=== PATIENT | male | born 1970 | race Caucasian/White ===

== ENCOUNTER 2018-03-26 07:36 | Emergency (ER) | payer MEDICAID, SELFPAY ==
[2018-03-26 07:50] VITALS: PULSE 70; RESP 18; TEMP 36.9; O2SAT 96
--- NOTE | 2018-03-26 08:05 | ED.GENADUL ---
Disposition Clinical Impression: Cellulitis of fourth toe, right Disposition: HOME Condition: Stable Instructions: Cellulitis (ED) Additional Instructions: continue cephalexin and start taking bactrim if you have redness spreading up the leg or fevers return to the emergency department you have a follow up appointment at your primary care office you can take 1000mg tylenol and 600mg ibuprofen every 6 hours for pain as needed Prescriptions: Clindamycin [Cleocin] 450 mg PO TID 7 Days cap Medical Decision Making - Medical Decision Making pt here with what appears to be cellulitis, Unclear if he has actually failed abx given only one day of cephalexin, but will add for mrsa coverage with bactrim. Has no fevers or severe pain or crepitus and has full rom of the toe so doubt osteo or nec fasc. Could be gout but has never had this before. No significant swelling of the joints and has full rom of the joint so doubt septic joint. Has intact vascular exam and sensation so doubt arterial occlusion. will have him f/u with pcp and return precautions given - Differential Diagnosis cellulitis, osteo, dvt, arterial occlusion History of Present Illness - General Chief complaint: Cellulitis Stated complaint: RIGHT FOOT TOE SWOLLEN Time Seen by Provider: 03/26/18 07:54 Source: patient Mode of arrival: ambulatory Limitations: no limitations - History of Present Illness Initial comments: 47 yo male comes in with one week of worsening right IV toe redness and swelling. He denies fevers or known trauma and no known hx of gout. He saw his pcp's office yesterday and was started on cehpalexin but felt his foot was more swollen so came here. He has red and purple coloring of the right IV toe. Sensation is intact. Has full rom and cap refill less than 2 seconds, toe does have mild warmth to touch, no severe pain. He has had pain with walking so has been limping and no feels there is some discomfort tin the right hip, has full rom of the hip without swelling warmth or redness. Has mild swelling of distal right foot, 2+ dp/pt pulses Complaint: right IV toe swelling Onset/Timin -: week(s) Location: lower extremity Quality: aching Consistency: constant Improves with: none Worsens with: none Associated Symptoms: denies other symptoms - Related Data Albuterol Sulfate [Proair Hfa] 8.5 gm IH Q6H PRN #2 puff 10/09/15 Cbd Oil Cap 15 mg BID 10/22/17 Echinacea 500 mg PO DAILY 10/29/17 Levothyroxine Sodium 50 mcg PO DAILY 10/29/17 Ibuprofen 800 mg PO TID #30 tablet 10/30/17 Cephalexin [Keflex] 250 mg PO QID 03/26/18 Clindamycin [Cleocin] 450 mg PO TID 7 Days cap 03/26/18 Allergies Allergy/AdvReac Type Severity Reaction Status Date / Time omeprazole Allergy Intermediate chest Unverified 03/26/18 07:53 pain, increased HR oxycodone AdvReac Intermediate Skin Rash Unverified 03/26/18 07:53 Sulfa (Sulfonamide AdvReac Intermediate vomiting Unverified 03/26/18 07:53 Antibiotics) Review of Systems Constitutional: denies: chills, fever Respiratory: denies: shortness of breath Cardiovascular: denies: chest pain Gastrointestinal: denies: abdominal pain, vomiting Musculoskeletal: denies: back pain Skin: rash Comment: All other systems reviewed and negative Past Medical History - Past Medical History back pain - Social History Alcohol use: none Drug use: none General Exam - General Limitations: no limitations General appearance: alert, in no apparent distress - Head Head exam: Present: atraumatic - Eye Eye exam: Present: normal apperance - ENT ENT exam: Present: mucous membranes moist - Neck Neck exam: Present: normal inspection - Respiratory Respiratory exam: Absent: respiratory distress - Cardiovascular Cardiovascular Exam: Present: regular rate - Extremities Exam Extremities exam: Present: full ROM, normal capillary refill, other (see hpi). Absent: calf tenderness - Neurological Exam Neurological exam: Present: alert, oriented X3 - Psychiatric Psychiatric exam: Present: normal affect - Skin Skin exam: Present: warm Course Vital Signs - 24 hr 03/26/18 07:50 Temperature 98.4 F Pulse 70 Respiratory 18 Rate Pulse Oximetry 96
--- NOTE | 2018-03-26 08:15 | NUR.NOTE ---
Nursing Note: Appt. made for patient at [facility] for @ 2:45pm with Dr. Stockton. Reyna Castro
[2018-03-26 08:20] VITALS: PULSE 70; RESP 18; TEMP 36.9; O2SAT 96
== END 2018-03-26 08:15 | disposition home or self-care (01) ==
PROVIDERS: Emergency Provider Emergency Medicine; PCP Nurse Practitioner Family
DX: L03.031 Cellulitis of right toe (principal)
CPT/HCPCS: 99283

== ENCOUNTER → 2018-04-10 07:03 | Outpatient (CLI) | payer MEDICAID, SELFPAY ==
[2018-04-10 07:42] LABS: Abs Immature Grans 0.01 k/cumm (0.0-0.09); Absolute Basophil Count 0.03 k/cumm (0.0-0.2); Absolute Eosinophil Count 0.15 k/cumm (0.0-0.7); Absolute Lymphocyte Count 2.01 k/cumm (1.2-3.4); Absolute Neutrophil Count 3.52 k/cumm (1.2-6.7); Basophils % 0.5; Eosinophils % 2.4; HCT 41.3 % (40.0-50.0); HGB 13.4 g/dL (13.5-17.5); Immature Grans % 0.2; Lymphocytes % 32.3; Mean Corp. HGB Concentration 32.4 g/dL (32.0-36.0); Mean Corpuscular Hemoglobin 28.9 pg (27.0-33.0); Mean Platelet Volume 9.6 fL (8.0-11.0); Neutrophils % 56.6; Platelet Count 239 x1000/uL (130-400); RBC 4.64 m/cumm (4.50-6.00); RBC Distribution Width 13.1 % (11.8-14.1); White Blood Cell Count 6.22 k/cumm (4.4-10.8)
[2018-04-10 08:15] LABS: C-Reactive Protein 0.34 mg/dL (0.0-0.3)
[2018-04-10 09:08] LABS: ESR 31 MM/HR (0-15)
== END ==
PROVIDERS: PCP Nurse Practitioner Family; Visit Provider Nurse Practitioner
DX: E03.9 Hypothyroidism, unspecified (principal); L03.115 Cellulitis of right lower limb; M79.89 Other specified soft tissue disorders
CPT/HCPCS: 36415; 85652; 85025; 86140

== ENCOUNTER 2018-05-30 14:38 | Outpatient (REF) | payer MEDICAID, SELFPAY ==
[2018-06-02 09:33] LABS: Hepatitis C Ab w Rflx HCV PCR Negative (NEGAT)
[2018-06-02 11:22] LABS: Hepatitis B Surface Ag Negative (NEGAT)
[2018-06-02 11:27] LABS: HIV-1/2 Ag & Ab Screen Negative (NEGAT)
== END 2018-05-30 14:58 ==
LOC: NCHCN 14:38
PROVIDERS: PCP Nurse Practitioner Family; Visit Provider Nurse Practitioner Family
DX: L08.89 Other specified local infections of the skin and subcutaneous tissue (principal); Z11.4 Encounter for screening for human immunodeficiency virus [HIV]; Z11.59 Encounter for screening for other viral diseases
CPT/HCPCS: 86803; 87340; 87389

== ENCOUNTER 2018-09-04 00:24 | Outpatient (CLI) | payer MEDICAID, SELFPAY ==
--- NOTE | 2018-09-04 15:23 | DI.MRI_ITS ---
SYMPTOM/DIAGNOSIS: CHRONIC LOW BACK PAIN, M54.5, MILD SPONDYLOSIS LUMBAR SPINE MRI: Routine noncontrast examination was performed. Comparison is made with 05/24/14. The conus medullaris has a normal appearance and location. There is a transitional vertebra at L 5 with partial sacralization noted. There is again seen a hemangioma in the S 1 vertebral body. At L 5-S 1, there is no focal disc herniation, central spinal canal or neural foraminal stenosis. Mild degenerative changes of the facets are seen. At L 4-5, there is disc desiccation. Mild degenerative signal changes are present. No significant neural foraminal stenosis is seen. No nerve root compression is present. At L 3-4, there is disc desiccation. Endplate degenerative signal changes are present. There is a mild diffuse disc bulge. No focal disc herniation or central spinal canal stenosis is seen. There are degenerative changes of the facets. Minimal narrowing of the neural foramen is seen bilaterally but no compression of the exiting nerve roots is seen. At L 2-3, there is disc desiccation. There is a mild diffuse disc bulge but no focal disc herniation or central spinal canal stenosis is seen. Mild narrowing of the left neural foramen is seen but no compression of the exiting nerve root is seen. At L 1-2, there is no focal disc herniation, central spinal canal or neural foraminal stenosis. IMPRESSION: Multi level degenerative changes in the lumbar spine. No central spinal canal stenosis or nerve root compression is seen.
--- NOTE | 2018-09-04 16:12 | DI.VRAD_ITS ---
EXAM: MR Lumbar Spine Without and With Contrast. EXAM DATE/TIME: 09/04/2018 3:20 PM CLINICAL HISTORY: 47 years old, male; Pain; Low back pain TECHNIQUE: Multiplanar magnetic resonance images of the lumbar spine without and with intravenous contrast. COMPARISON: MRI - LUMBAR SPINE WO CONTRAST 05/24/2014 3:27 PM FINDINGS: Note: No images were provided. Vertebrae: The lumbar lordosis is preserved. Transitional lumbosacral junction with partial sacralization of L5. There is mild levoscoliosis centered at the L2 level. Vertebral alignment is normal. There is disc space narrowing at T11-T12, T12-L1, and L4-L5 with desiccation of the discs. No acute fracture. Hemangioma measuring 1.6 cm in the S1 vertebra. Marrow otherwise unremarkable. Vertebral body heights maintained. Spinal cord: The distal spinal cord and conus medullaris are normal in configuration and signal intensity. The conus medullaris terminates at a normal level. Nerve roots of the cauda equina are unremarkable. Thoracic discs/Spinal canal/Neural foramina: T11-T12: Minimal annular bulge. No central or foraminal stenosis. DISCS/SPINAL CANAL/NEURAL FORAMINA: T12-L1: Mild annular bulge. No central or foraminal stenosis. L1-L2: No central or foraminal stenosis. L2-L3: Mild diffusely bulging disc. Mild facet hypertrophy. Mild LEFT foraminal stenosis. Central canal patent. L3-L4: Mild bulging disc. Mild facet arthropathy. Mild bilateral foraminal stenosis. Central canal is patent. L4-L5: Mild bulging disc and mild bilateral facet hypertrophy. Mild bilateral foraminal stenosis. Central canal patent. L5-S1: Bilateral facet hypertrophy. No central or foraminal stenosis. Soft tissues: Soft tissues unremarkable. IMPRESSION: Degenerative changes of the lower thoracic and lumbar spine. Mild LEFT foraminal stenosis at L2-L3. Mild bilateral foraminal stenosis at L3-L4 and L4-L5. Previous examination there has been slight progressive loss of height of the T12-L1 disc space. Otherwise no significant interval change. Dictated and Authenticated by: Shellie Mayo MD. Ordering:BRIEN Reyes MD
== END 2018-09-04 00:44 ==
PROVIDERS: PCP Nurse Practitioner Family; Visit Provider Nurse Practitioner Family
DX: M54.5 Low back pain (principal); M51.37 Other intervertebral disc degeneration, lumbosacral region
CPT/HCPCS: 72148

== ENCOUNTER 2018-10-02 15:44 | Outpatient (CLI) | payer MEDICAID, SELFPAY ==
--- NOTE | 2018-10-02 15:32 | DI.RAD_ITS ---
SYMPTOM/DIAGNOSIS: L08.9, LOCAL INFECTION OF SKIN RIGHT FOOT: Three views were obtained. There is reportedly forefoot infection. The bones appear intact with no evidence of erosion or destruction. No other significant abnormality is seen.
--- NOTE | 2018-10-02 16:22 | DI.VRAD_ITS ---
EXAM: XR Right Foot Complete, 3 or more Views EXAM DATE/TIME: 10/02/2018 3:58 PM CLINICAL HISTORY: 47 years old, male; Pain and condition or disease; Other: Local infection skin subcutaneous tissue; Foot; Right; Patient HX: Local infection of skin and subcutaneous tissue; Additional info: Per PT: Pad of 2nd/3rd toes TECHNIQUE: XR Right foot 3 or more views. COMPARISON: CR RIGHT FOOT COMPLETE 03/28/2018 6:02 PM FINDINGS: Bones/joints: Normal. No fracture or subluxation. Soft tissues: Unremarkable. IMPRESSION: No acute osseous findings Dictated and Authenticated by: Cruz Cervantes MD. Ordering:CAROLE Branch MD
== END 2018-10-02 16:04 ==
PROVIDERS: PCP Nurse Practitioner Family; Visit Provider Podiatrist Foot & Ankle Surgery
DX: L08.89 Other specified local infections of the skin and subcutaneous tissue (principal)
CPT/HCPCS: 73630

== ENCOUNTER 2018-11-07 13:34 | Outpatient (REF) | payer MEDICAID, SELFPAY ==
[2018-11-07 18:37] LABS: Anion Gap 9.6 mmol/L (3-11); BUN 17 mg/dL (7-18); CO2 26.4 mmol/L (21.0-32.0); CREATININE 1.02 mg/dL (0.70-1.30); Calcium 8.3 mg/dL (8.5-10.1); Chloride 107 mmol/L (98-107); Glucose 84 mg/dL (70-100); Potassium 4.1 mmol/L (3.5-5.1); Sodium 143 mmol/L (136-145)
[2018-11-07 18:46] LABS: Abs Immature Grans 0.01 k/cumm (0.0-0.09); Absolute Basophil Count 0.02 k/cumm (0.0-0.2); Absolute Eosinophil Count 0.07 k/cumm (0.0-0.7); Absolute Neutrophil Count 3.02 k/cumm (1.2-6.7); Basophils % 0.4; Eosinophils % 1.4; HCT 39.1 % (40.0-50.0); HGB 13.1 g/dL (13.5-17.5); Immature Grans % 0.2; Lymphocytes % 28.5; Mean Corp. HGB Concentration 33.5 g/dL (32.0-36.0); Mean Corpuscular Hemoglobin 30.6 pg (27.0-33.0); Mean Corpuscular Volume 91.4 fL (80-95); Monocytes % 8.1; Neutrophils % 61.4; Platelet Count 186 x1000/uL (130-400); RBC 4.28 m/cumm (4.50-6.00); RBC Distribution Width 13.3 % (11.8-14.1); White Blood Cell Count 4.92 k/cumm (4.4-10.8)
[2018-11-10 09:45] LABS: PSA, Screening 0.6 ng/ml (0-2.5)
[2018-11-10 14:12] LABS: Chlamydia Result Negative; GC Result Negative; Specimen Description URINE
== END 2018-11-07 13:54 ==
LOC: NCHCN 13:34
PROVIDERS: PCP Nurse Practitioner Family; Visit Provider Nurse Practitioner Family
DX: R35.0 Frequency of micturition (principal); Z12.5 Encounter for screening for malignant neoplasm of prostate
CPT/HCPCS: 80048; 84153; 87491; 87591; 85025

== ENCOUNTER 2018-11-11 16:57 | Outpatient (REF) | payer MEDICAID, SELFPAY ==
[2018-11-11 20:03] LABS: Bacteria Negative HPF (Negative); C & S Indicated? No; Casts Negative LPF (Negative); Crystals Negative HPF (Negative); Epithelial Cells Negative HPF (Negative); Mucus Negative (Negative); Other Cells Negative (Negative); RBC 0-2 (0-2); WBC 0-2 HPF (0-5)
== END 2018-11-11 17:17 ==
LOC: NCHCN 16:57
PROVIDERS: PCP Nurse Practitioner Family; Visit Provider Nurse Practitioner Family
DX: R35.0 Frequency of micturition (principal); N50.82 Scrotal pain
CPT/HCPCS: 81015

== ENCOUNTER 2018-11-14 02:33 | Outpatient (CLI) | payer MEDICAID, SELFPAY ==
--- NOTE | 2018-11-14 13:33 | DI.US_ITS ---
SYMPTOMS/DIAGNOSIS: SCROTAL PAIN, N50.82, RIGHT SIDE SCROTAL ULTRASOUND: Scrotal ultrasound was performed according to the usual protocol. The testes are normal in echotexture and show no evidence of a mass. There is symmetrical vascular flow to the testes. The epididymides are unremarkable in appearance except for a 6 mm cyst or spermatocele in the epididymis on the left. There is a small right hydrocele. CONCLUSION: No evidence of intratesticular mass or torsion. Small right hydrocele noted.
== END 2018-11-14 02:53 ==
PROVIDERS: PCP Nurse Practitioner Family; Visit Provider Nurse Practitioner Family
DX: N50.82 Scrotal pain (principal); N43.3 Hydrocele, unspecified
CPT/HCPCS: 76870

== ENCOUNTER 2018-11-26 10:02 | Outpatient (REF) | payer MEDICAID, SELFPAY | END 2018-11-26 10:22 | LOC: NCHCN 10:02 | PROVIDERS: PCP Nurse Practitioner Family; Visit Provider Nurse Practitioner Family | DX: E03.9 Hypothyroidism, unspecified (principal) | CPT/HCPCS: 84443 ==

== ENCOUNTER 2020-01-12 14:12 | Outpatient (REF) | payer OTHER, SELFPAY ==
[2020-01-12 16:37] LABS: TSH 4.89 uIU/mL (0.36-3.74)
== END 2020-01-12 14:32 ==
LOC: NCHCN 14:12
PROVIDERS: PCP Nurse Practitioner Family; Visit Provider Family Medicine
DX: E03.9 Hypothyroidism, unspecified (principal)
CPT/HCPCS: 84443

== ENCOUNTER 2020-01-13 17:34 | Outpatient (REF) | payer OTHER, SELFPAY ==
[2020-01-13 19:53] LABS: HCT 39.8 % (40.0-50.0); HGB 13.3 g/dL (13.5-17.5); Mean Corp. HGB Concentration 33.4 g/dL (32.0-36.0); Mean Corpuscular Hemoglobin 30.2 pg (27.0-33.0); Mean Corpuscular Volume 90.2 fL (80-95); Mean Platelet Volume 10.1 fL (8.0-11.0); Platelet Count 218 x1000/uL (130-400); RBC 4.41 m/cumm (4.50-6.00); RBC Distribution Width 13.1 % (11.8-14.1); White Blood Cell Count 5.06 k/cumm (4.4-10.8)
[2020-01-13 20:26] LABS: ALT 50 U/L (16-63); AST 28 U/L (15-37); Albumin 3.8 g/dL (3.4-5.0); Alkaline Phosphatase 71 U/L (46-116); Anion Gap 6.9 mmol/L (3-11); BUN 14 mg/dL (7-18); Bilirubin, Total 0.2 mg/dL (0.2-1.0); CO2 27.1 mmol/L (21.0-32.0); Calcium 8.6 mg/dL (8.5-10.1); Chloride 107 mmol/L (98-107); Glucose 109 mg/dL (74-106); Potassium 3.7 mmol/L (3.5-5.1); Sodium 141 mmol/L (136-145); TSH 4.18 uIU/mL (0.36-3.74); Total Protein 6.7 g/dL (6.4-8.2)
[2020-01-13 20:39] LABS: ESR 16 mm/hr (0-15)
== END 2020-01-13 17:54 ==
LOC: NCHCN 17:34
PROVIDERS: PCP Nurse Practitioner Family; Visit Provider Family Medicine
DX: L08.9 Local infection of the skin and subcutaneous tissue, unspecified (principal); E03.9 Hypothyroidism, unspecified; R53.83 Other fatigue; D64.9 Anemia, unspecified
CPT/HCPCS: 80053; 85027; 85652; 84443

== ENCOUNTER 2020-03-04 21:32 | Outpatient (REF) | payer OTHER, SELFPAY ==
[2020-03-04 19:53] LABS: Iron 77 ug/dL (65-175); Total Iron Binding Capacity 287 ug/dL (250-450); Transferrin Sat 27 % (20-55)
[2020-03-04 20:04] LABS: Ferritin 188 ng/mL (26-388); TSH (W/Ref FT4) 2.64 uIU/mL (0.36-3.74); Vitamin B12 311 pg/mL (193-986)
== END 2020-03-04 21:52 ==
LOC: NCHCN 21:32
PROVIDERS: PCP Nurse Practitioner Family; Visit Provider Family Medicine
DX: D64.9 Anemia, unspecified (principal); E03.9 Hypothyroidism, unspecified
CPT/HCPCS: 82607; 82728; 83540; 83550; 84443

== ENCOUNTER 2020-04-12 13:16 | Outpatient (REF) | payer OTHER, SELFPAY ==
[2020-04-12 18:53] LABS: Calculated LDL 147 mg/dL (<100); Cholesterol 209 mg/dL (<200); HDL Cholesterol 44 mg/dL (40-60); Triglyceride 92 mg/dL (<150)
[2020-04-12 19:00] LABS: Hemoglobin A1C 5.5 % (<5.7)
== END 2020-04-12 13:36 ==
LOC: NCHCN 13:16
PROVIDERS: PCP Nurse Practitioner Family; Visit Provider Family Medicine
DX: Z00.00 Encounter for general adult medical examination without abnormal findings (principal); Z13.1 Encounter for screening for diabetes mellitus; Z13.220 Encounter for screening for lipoid disorders
CPT/HCPCS: 80061; 83036